=== PATIENT | female | born 2000 | race Asian ===

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

== ENCOUNTER 2022-06-23 09:07 | Emergency (ER) | payer OTHER ==
[~2022-06-23] VITALS: Ht 162.6 cm; Wt 70.3 kg
[2022-06-23 10:07] LABS: PLATELET COUNT 268 K/uL (152-353)
[2022-06-23 11:08] VITALS: BP 132/80; TEMP 97.6
== END 2022-06-23 11:08 | disposition home or self-care (01) ==
LOC: ED 09:07
PROVIDERS: Family Medicine
DX: U07.1 COVID-19 (principal); J06.9 Acute upper respiratory infection, unspecified; R50.9 Fever, unspecified
CPT/HCPCS: 85027; 87502; 99282